=== PATIENT | male | born 1985 | race American Indian/Alaskan Native ===

== ENCOUNTER 2019-12-01 17:23 | Inpatient (IN) | payer OTHER, SELFPAY ==
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
[2019-12-01 19:40] LABS: Basophils % (Auto) 0.3 % (0.0-1.8); Hematocrit 46.3 % (35.5-45.6); Hemoglobin 15.3 gm/dl (11.8-15.2); Lymphocytes # (Auto) 1.4 K/mm3 (1.2-5.4); Lymphocytes % (Auto) 9.8 % (13.4-35.0); Mean Corpuscular HGB Conc 33 % (32-34); Mean Corpuscular Volume 81 fl (84-94); Monocytes # (Auto) 1.8 K/mm3 (0.0-0.8); Platelet Count 278 K/mm3 (140-440); Red Cell Distribution Width 13.9 % (13.2-15.2)
--- NOTE | 2019-12-01 19:55 | Cat Scan Report ---
CT head/brain wo con INDICATION / CLINICAL INFORMATION: 34 years Male; altered mental status. TECHNIQUE: Routine CT head without contrast. All CT scans at this location are performed using CT dos e reduction for ALARA by means of automated exposure control. COMPARISON: None. FINDINGS: BRAIN / INTRACRANIAL CONTENTS: The brain appears to demonstrate appropriate attenuation. The ventricu lar system is within normal limits in size and configuration. There is no CT evidence of acute intrac ranial hemorrhage or significant mass effect. ORBITS: No significant abnormality of visualized orbits. SINUSES / MASTOIDS: There is minimal mucosal thickening along the posterior left ethmoid air cells. CRANIOCERVICAL JUNCTION: No significant abnormality. ADDITIONAL FINDINGS: None. IMPRESSION: 1. There is no CT evidence of acute intracranial process. Signer Name: Frank Lucio MD Signed: 12/01/2019 7:51 PM Workstation Name: [id number]
[2019-12-01 20:00] LABS: INR 1.09 (0.87-1.13); Partial Thromboplastin Time 26.3 Sec. (24.2-36.6)
[2019-12-01 20:06] LABS: Alanine Aminotransferase 35 units/L (7-56); Albumin 4.2 g/dL (3.9-5); BUN/Creatinine Ratio 16; Blood Urea Nitrogen 13 mg/dL (9-20); Calcium 9.4 mg/dL (8.4-10.2); Hemolysis Index 0
--- NOTE | 2019-12-01 20:20 | XRay Report ---
XR chest 1V ap INDICATION / CLINICAL INFORMATION: AMS COMPARISON: None available. FINDINGS: SUPPORT DEVICES: None. HEART / MEDIASTINUM: No significant abnormality. LUNGS / PLEURA: Low lung lines with bronchovascular crowding. Lungs are clear. Costophrenic sulci ar e sharp. No pneumothorax. ADDITIONAL FINDINGS: No significant additional findings. IMPRESSION: 1. Pulmonary hypoinflation with no acute findings. Signer Name: Santo Hayes MD Signed: 12/01/2019 8:16 PM Workstation Name: [id number]
[2019-12-01 21:09] LABS: Amphetamine Screen,Urine PRESUMPTIVE NEGATIVE; Benzodiazepines Screen,Urine PRESUMPTIVE NEGATIVE; Cannabinoid Screen,Urine PRESUMPTIVE NEGATIVE; Cocaine Screen,Urine PRESUMPTIVE NEGATIVE; Methadone Screen,Urine PRESUMPTIVE NEGATIVE; Opiate Screen,Urine PRESUMPTIVE NEGATIVE
[2019-12-01 21:12] LABS: Bilirubin,Urine NEG (Negative); Blood,Urine NEG (Negative); Color,Urine Yellow (Yellow); Mucus,Urine FEW /HPF; Urobilinogen,Urine < 2.0 mg/dL (<2.0)
[2019-12-01] MEDS ORDERED: CEFEPIME/NS 2 GM/100 ML 2 GM/100 ML BAG IV ONE (21:38)
[2019-12-01] MEDS ORDERED: SODIUM CHLORIDE 0.9% 1000 ML 1,000 ML IV ONE (21:38)
[2019-12-01 21:45] LABS: ABG Base Excess 0.5 mmol/L (-2.0-3.0); ABG HCO3 24.6 mmol/L (20.0-26.0); ABG Methemoglobin 0.6 % (0.0-1.5); ABG Oxygen Saturation 98.7 % (95.0-99.0); ABG PCO2 38.3 mm Hg; ABG PH 7.426 pH Units (7.350-7.450); ABG PO2 139.1 mm Hg (80.0-90.0)
[2019-12-01] MEDS ORDERED: LORazepam 2 MG/ML VIAL IV ONE (21:59)
[2019-12-02] MEDS ORDERED: ACETAMINOPHEN 325 MG TAB PO PRN (00:34)
[2019-12-02] MEDS ORDERED: MAGNESIUM HYDROXIDE (MOM) ORAL LIQD UDC PO PRN (00:34)
[2019-12-02] MEDS ORDERED: ONDANSETRON 4 MG/2 ML INJ IV PRN (00:34)
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
[2019-12-02] MEDS: SODIUM CHLORIDE 0.9% 1000 ML 1,000 ML IV SCH (04:25)
[2019-12-02] MEDS: CEFEPIME/NS 2 GM/100 ML 2 GM/100 ML BAG IV SCH ×3 (05:22→22:35)
[2019-12-02] MEDS ORDERED: dexAMETHasone 4 MG/ML VIAL IV SCH (10:00)
--- NOTE | 2019-12-02 11:56 | Consultation ---
History of Present Illness - Reason for Consult Consult date: 12/02/19 - History of Present Illness 34 yo M no PMHx brought to the hospital due to altered mental status. He was recently diagnosed with COVID at [facility] on 11/26/19 and was given symptomatic treatment before being discharged. CT at the time showed bilateral GGO of the lungs. He re-presented to [facility] the day prior to admission with anxiety, and was discharged.. He was then with his family and became confused with hallucinations. He was found to be tachycardic on presentation to the hospital and his altered mental status improved while in the ER. Afebrile since admission. Currently on cefepime. White count is elevated at 13.7. Blood cultures are pending. Imaging personally reviewed: CXR: decreased volumes, no obvious pneumonia. Review of Systems: Bold if positive, otherwise negative General: fevers, chills, rigors HEENT: visual disturbance, diplopia, eye pain Respiratory: cough, sputum, hemoptysis, shortness of breath Cardiovascular: chest pain, syncope Gastrointestinal: nausea, vomiting, diarrhea, abdominal pain Genitourinary: dysuria, hematuria, flank pain Musculoskeletal: neck pain, back pain, joint pain, edema Neurologic: headaches, seizures Hematologic: easy bruising or bleeding Endocrine: night sweats, acute weight loss Skin: rash, jaundice, redness Psychiatric: suicidal, homicidal ideation Past History Past Medical History: No medical history Past Surgical History: No surgical history Social history: no significant social history Family history: no significant family history Medications and Allergies Allergies Allergy/AdvReac Type Severity Reaction Status Date / Time lead Allergy Unknown Verified 12/01/19 20:42 Home Medications Medication Instructions Recorded Confirmed Last Taken Type No Known Home Medications [No 12/02/19 12/02/19 Unknown History Reported Home Medications] Active Meds: Active Medications Acetaminophen (Tylenol) 650 mg PO Q4H PRN PRN Reason: Pain MILD(1-3)/Fever >100.5/MILLER Dexamethasone (Decadron) 6 mg IV Q24HR NEHA Last Admin: 12/02/19 09:35 Dose: 6 mg Documented by: Enoxaparin Sodium (Enoxaparin) 40 mg SUB-Q QDAY@2200 NEHA Sodium Chloride (Nacl 0.9% 1000 Ml) 1,000 mls @ 75 mls/hr IV DIRECT NEHA Last Admin: 12/02/19 04:25 Dose: 75 mls/hr Documented by: Cefepime HCl (Cefepime/Ns 2 Gm/100 Ml) 2 gm in 100 mls @ 200 mls/hr IV Q8HR [facility]; Protocol Last Admin: 12/02/19 05:22 Dose: 200 mls/hr Documented by: Magnesium Hydroxide (Milk Of Magnesia) 30 ml PO Q4H PRN PRN Reason: Constipation Ondansetron HCl (Zofran) 4 mg IV Q8H PRN PRN Reason: Nausea And Vomiting Sodium Chloride (Sodium Chloride Flush Syringe 10 Ml) 10 ml IV BID [facility] Last Admin: 12/02/19 09:36 Dose: 10 ml Documented by: Sodium Chloride (Sodium Chloride Flush Syringe 10 Ml) 10 ml IV PRN PRN PRN Reason: LINE FLUSH Physical Examination - Physical Exam Narrative exam: Physical Exam: Constitutional: Alert, cooperative. No acute distress Head, Ears, Nose: Normocephalic, atraumatic. External ears, nose normal Eyes: Conjunctivae/corneas clear. No icterus. No ptosis. Neck: Supple, no meningeal signs Oral: dentition fair, no thrush Cardiovascular: S1, S2 normal. Respiratory: Good air entry, clear to auscultation bilaterally GI: Soft, non-tender; bowel sounds normal. No peritoneal signs. Musculoskeletal: No pedal edema, no cyanosis. Skin: No rash or abscess Hem/Lymphatic: No palpable cervical or supraclavicular nodes. No lymphangitis Psych: Mood ok. Affect normal Neurological: Awake, alert, oriented. No gross abnormality - Constitutional Vitals: Vital Signs Temp Pulse Resp BP Pulse Ox 97.5 F L 104 H 18 137/87 98 12/02/19 05:00 12/02/19 05:00 12/02/19 05:00 12/02/19 05:00 12/02/19 05:00 Temperature -Last 24 Hours Temperature 97.5 F Temperature 97.6 F Temperature 98.9 F Temperature 98.7 F Results - Labs CBC & Chem 7: 12/01/19 19:20 12/01/19 19:20 Labs: Abnormal lab results 12/01/19 12/01/19 12/01/19 Range/Units 19:20 19:20 21:25 WBC 13.7 H (4.5-11.0) K/mm3 RBC 5.70 H (3.65-5.03) M/mm3 Hgb 15.3 H (11.8-15.2) gm/dl Hct 46.3 H (35.5-45.6) % MCV 81 L (84-94) fl MCH 27 L (28-32) pg Lymph % (Auto) 9.8 L (13.4-35.0) % [place] % (Auto) 13.0 H (0.0-7.3) % [place] # 1.8 H (0.0-0.8) K/mm3 Seg Neutrophils % 76.9 H (40.0-70.0) % Seg Neutrophils # 10.6 H (1.8-7.7) K/mm3 ABG pO2 139.1 H (80.0-90.0) mm Hg Sodium 132 L (137-145) mmol/L Chloride 92.4 L (98-107) mmol/L Glucose 103 H (75-100) mg/dL Total Protein 8.5 H (6.3-8.2) g/dL Assessment and Plan Cultures: Blood culture pending A/P: 34 yo M no PMHx admitted with COVID-19 and altered mental status. #COVID-19: recommend starting Remdesivir, even in the absence of hypoxia given he is having hallucinations. #Altered mental status: had been on steroids previously for the COVID, however he had self-stopped the medication as he felt it was making him anxious. Could be contributing to his AMS, however could also be a direct viral effect. Would need LP to determine which. If his symptoms resolve in short order can avoid LP Recs: -Started Remdesivir, D1 of 5. Monitor renal and liver function while receiving. If patient mental status improves prior to completion of all 5 days, no need to keep him here prior to the completion of the 5th day. -Continue empiric cefepime for now. -I strongly doubt a bacterial meningitis, as such an LP would not drive therapeutics, as such would hold off unless AMS does not resolve -Ordered procalcitonin for AM labs. Thank you for the consult, we will continue to follow. Keith Hinton MD [facility] ([facility]) M: [phone] O: [phone] F: [phone]
--- NOTE | 2019-12-02 16:45 | Progress Note ---
Assessment and Plan Assessment and plan: --Altered mental status/acute metabolic encephalopathy current Visit: Yes Status: Acute Plan to address problem: Possibly secondary to the underlying COVID infection. Supportive care, director food safety ID recommended lumbar puncture if no improvement Rule out underlying psych disorder, psych consult Drug screen is negative --Acute psychosis/hallucinations: Current Visit: Yes Status: Acute Plan to address problem: Patient is psychotic intermittent hallucinations supportive care, psych evaluation Haldol as needed, director food safety --Recent positive COVID-19; Current Visit: Yes Status: Acute Plan to address problem: isolation precautions, PPE protocols Dexamethasone,Remdecivir / Empiric cefepime, ID following -- Leukocytosis Current Visit: Yes Status: Acute Plan to address problem: Secondary to underlying disease process, steroid use On empiric cefepime, follow cultures -- DVT prophylaxis Current Visit: Yes Status: Acute Plan to address problem: SC Lovenox --Full code status Current Visit: Yes Status: Acute Closely monitor the patient and adjust management as needed Plan of care reviewed with the patient's nurse I also called patient's mother Ms. Lepe and sister Ms. Kidd[[phone]] I discussed in detail patient's condition, test reports, treatment plan ID recommendations, answered all their questions Disposition; follow ID, psych recommendations, follow clinically Discharge planning stable History Interval history: I have seen and examined the patient at the bedside Patient's chart and medications reviewed Patient was admitted with AMS and hallucinations Recently diagnosed positive COVID 19 Patient is calm but confused Vital signs reviewed Hospitalist Physical - Constitutional Vitals: Temp Pulse Resp BP Pulse Ox 98.0 F 104 H 20 157/95 98 12/02/19 13:19 12/02/19 05:00 12/02/19 13:19 12/02/19 13:19 12/02/19 05:00 General appearance: Present: no acute distress, well-nourished, other (Confused) - EENT Eyes: Present: PERRL, EOM intact - Neck Neck: Present: supple, normal ROM - Respiratory Respiratory effort: normal Respiratory: bilateral: diminished, negative: rales, rhonchi, wheezing - Cardiovascular Rhythm: regular Heart Sounds: Present: S1 & S2 (Tachycardia) - Extremities Extremities: no ischemia, No edema - Abdominal General gastrointestinal: soft, non-tender, non-distended, normal bowel sounds - Integumentary Integumentary: Present: clear, warm - Psychiatric Psychiatric: agitated, other (Confused, hallucinating) - Neurologic Neurologic: moves all extremities Results - Labs CBC & Chem 7: 12/01/19 19:20 12/01/19 19:20 Labs: Laboratory Last Values WBC 13.7 K/mm3 (4.5-11.0) H 12/01/19 19:20 RBC 5.70 M/mm3 (3.65-5.03) H 12/01/19 19:20 Hgb 15.3 gm/dl (11.8-15.2) H 12/01/19 19:20 Hct 46.3 % (35.5-45.6) H 12/01/19 19:20 MCV 81 fl (84-94) L 12/01/19 19:20 MCH 27 pg (28-32) L 12/01/19 19:20 MCHC 33 % (32-34) 12/01/19 19:20 RDW 13.9 % (13.2-15.2) 12/01/19 19:20 Plt Count 278 K/mm3 (140-440) 12/01/19 19:20 Lymph % (Auto) 9.8 % (13.4-35.0) L 12/01/19 19:20 Graham % (Auto) 13.0 % (0.0-7.3) H 12/01/19 19:20 Eos % (Auto) 0.0 % (0.0-4.3) 12/01/19 19:20 Baso % (Auto) 0.3 % (0.0-1.8) 12/01/19 19:20 Lymph # 1.4 K/mm3 (1.2-5.4) 12/01/19 19:20 Graham # 1.8 K/mm3 (0.0-0.8) H 12/01/19 19:20 Eos # 0.0 K/mm3 (0.0-0.4) 12/01/19 19:20 Baso # 0.0 K/mm3 (0.0-0.1) 12/01/19 19:20 Seg Neutrophils % 76.9 % (40.0-70.0) H 12/01/19 19:20 Seg Neutrophils # 10.6 K/mm3 (1.8-7.7) H 12/01/19 19:20 PT 14.2 Sec. (12.2-14.9) 12/01/19 19:20 INR 1.09 (0.87-1.13) 12/01/19 19:20 APTT 26.3 Sec. (24.2-36.6) 12/01/19 19:20 ABG pH 7.426 pH Units (7.350-7.450) 12/01/19 21:25 ABG pCO2 38.3 mm Hg 12/01/19 21:25 ABG pO2 139.1 mm Hg (80.0-90.0) H 12/01/19 21: ABG HCO3 24.6 mmol/L (20.0-26.0) 12/01/19 21:25 ABG O2 Saturation 98.7 % (95.0-99.0) 12/01/19 21: ABG O2 Content 20.9 (0.0-44) 12/01/19 21:25 ABG Base Excess 0.5 mmol/L (-2.0-3.0) 12/01/19 21:25 ABG Hemoglobin 15.2 gm/dl (14.0-18.0) 12/01/19 21:25 ABG Carboxyhemoglobin 1.2 % (0.0-5.0) 12/01/19 21:25 ABG Methemoglobin 0.6 % (0.0-1.5) 12/01/19 21: Oxyhemoglobin 96.9 % (95.0-99.0) 12/01/19 21:25 FiO2 21 % 12/01/19 21:25 Sodium 132 mmol/L (137-145) L 12/01/19 19:20 Potassium 3.9 mmol/L (3.6-5.0) 12/01/19 19:20 Chloride 92.4 mmol/L (98-107) L 12/01/19 19:20 Carbon Dioxide 23 mmol/L (22-30) 12/01/19 19:20 Anion Gap 21 mmol/L 12/01/19 19:20 BUN 13 mg/dL (9-20) 12/01/19 19:20 Creatinine 0.8 mg/dL (0.8-1.3) 12/01/19 19:20 Estimated GFR > 60 ml/min 12/01/19 19:20 BUN/Creatinine Ratio 16 % 12/01/19 19:20 Glucose 103 mg/dL (75-100) H 12/01/19 19:20 Lactic Acid 1.00 mmol/L (0.7-2.0) 12/01/19 19:20 Calcium 9.4 mg/dL (8.4-10.2) 12/01/19 19:20 Total Bilirubin 0.60 mg/dL (0.1-1.2) 12/01/19 19:20 AST 22 units/L (5-40) 12/01/19 19:20 ALT 35 units/L (7-56) 12/01/19 19:20 Alkaline Phosphatase 72 units/L (35-129) 12/01/19 19:20 Ammonia 35.0 umol/L (25-60) 12/01/19 19:20 Total Protein 8.5 g/dL (6.3-8.2) H 12/01/19 19:20 Albumin 4.2 g/dL (3.9-5) 12/01/19 19:20 Albumin/Globulin Ratio 1.0 % 12/01/19 19:20 Urine Color Yellow (Yellow) 12/01/19 Unknown Urine Turbidity Clear (Clear) 12/01/19 Unknown Urine pH 6.0 (5.0-7.0) 12/01/19 Unknown Ur Specific Pony 1.019 (1.003-1.030) 12/01/19 Unknown Urine Protein 30 mg/dl mg/dL (Negative) 12/01/19 Unknown Urine Glucose (UA) Neg mg/dL (Negative) 12/01/19 Unknown Urine Ketones 80 mg/dL (Negative) 12/01/19 Unknown Urine Blood Neg (Negative) 12/01/19 Unknown Urine Nitrite Neg (Negative) 12/01/19 Unknown Urine Bilirubin Neg (Negative) 12/01/19 Unknown Urine Urobilinogen < 2.0 mg/dL (<2.0) 12/01/19 Unknown Ur Leukocyte Esterase Neg (Negative) 12/01/19 Unknown Urine WBC (Auto) 1.0 /HPF (0.0-6.0) 12/01/19 Unknown Urine RBC (Auto) 3.0 /HPF (0.0-6.0) 12/01/19 Unknown U Epithel Cells (Auto) < 1.0 /HPF (0-13.0) 12/01/19 Unknown Urine Mucus Few /HPF 12/01/19 Unknown Urine Opiates Screen Presumptive negative 12/01/19 Unknown Urine Methadone Screen Presumptive negative 12/01/19 Unknown Ur Barbiturates Screen Presumptive negative 12/01/19 Unknown Ur Phencyclidine Scrn Presumptive negative 12/01/19 Unknown Ur Amphetamines Screen Presumptive negative 12/01/19 Unknown U Benzodiazepines Scrn Presumptive negative 12/01/19 Unknown Urine Cocaine Screen Presumptive negative 12/01/19 Unknown U Marijuana (THC) Screen Presumptive negative 12/01/19 Unknown Drugs of Abuse Note Disclamer 12/01/19 Unknown Plasma/Serum Alcohol < 0.01 % (0-0.07) 12/01/19 19:20 Microbiology: Microbiology 12/01/19 19:29 Peripheral/Venous Blood Culture - Preliminary Culture in Progress 12/01/19 19:20 Peripheral/Venous Blood Culture - Preliminary Culture in Progress Rodriguez/IV: Voiding Method Urinal IV Catheter Type [Right INT / Saline Lock Forearm] Active Medications - Current Medications Current Medications: Generic Name Dose Route Start Last Admin Trade Name Freq PRN Reason Stop Dose Admin Acetaminophen 650 mg 12/02/19 00:34 Tylenol PO Q4H PRN Pain MILD(1-3)/Fever >100.5/MILLER Dexamethasone 6 mg 12/02/19 10:00 12/02/19 09:35 Decadron IV 6 mg Q24HR NEHA Administration Enoxaparin Sodium 40 mg 12/02/19 22:00 Enoxaparin SUB-Q QDAY@2200 NEHA Sodium Chloride 1,000 mls @ 75 mls/hr 12/02/19 00:45 12/02/19 04:25 Nacl 0.9% 1000 Ml IV 75 mls/hr DIRECT NEHA Administration Cefepime HCl 2 gm in 100 mls @ 200 mls/hr 12/02/19 06:00 12/02/19 14:27 Cefepime/Ns 2 Gm/100 Ml IV 200 mls/hr Q8HR NEHA Administration Protocol Magnesium Hydroxide 30 ml 12/02/19 00:34 Milk Of Magnesia PO Q4H PRN Constipation Ondansetron HCl 4 mg 12/02/19 00:34 Zofran IV Q8H PRN Nausea And Vomiting Sodium Chloride 10 ml 12/02/19 10:00 12/02/19 09:36 Sodium Chloride Flush Syringe 10 Ml IV 10 ml BID NEHA Administration Sodium Chloride 10 ml 12/02/19 00:34 Sodium Chloride Flush Syringe 10 Ml IV PRN PRN LINE FLUSH
[2019-12-02] MEDS: HALOPERIDOL LACTATE 5 MG/1 ML INJ IM PRN (19:24)
[2019-12-02] MEDS: ENOXAPARIN 40 MG/0.4 ML INJ SUB-Q SCH (22:36)
[2019-12-03] MEDS: HALOPERIDOL LACTATE 5 MG/1 ML INJ IM PRN (01:37)
[2019-12-03] MEDS: CEFEPIME/NS 2 GM/100 ML 2 GM/100 ML BAG IV SCH ×2 (06:22→14:00)
[2019-12-03 07:30] LABS: Basophils # (Auto) 0.1 K/mm3 (0.0-0.1); Basophils % (Auto) 0.5 % (0.0-1.8); Eosinophils # (Auto) 0.1 K/mm3 (0.0-0.4); Eosinophils % (Auto) 0.5 % (0.0-4.3); Hematocrit 42.8 % (35.5-45.6); Hemoglobin 14.2 gm/dl (11.8-15.2); Lymphocytes # (Auto) 2.5 K/mm3 (1.2-5.4); Lymphocytes % (Auto) 19.1 % (13.4-35.0); Mean Corpuscular HGB Conc 33 % (32-34); Mean Corpuscular Volume 81 fl (84-94); Monocytes # (Auto) 1.6 K/mm3 (0.0-0.8); Monocytes % (Auto) 12.3 % (0.0-7.3); Platelet Count 359 K/mm3 (140-440); Red Blood Count 5.27 M/mm3 (3.65-5.03); Red Cell Distribution Width 13.6 % (13.2-15.2)
[2019-12-03 07:52] LABS: INR 1.04 (0.87-1.13)
[2019-12-03 07:55] LABS: Alanine Aminotransferase 28 units/L (7-56); Albumin 3.8 g/dL (3.9-5); BUN/Creatinine Ratio 11; Blood Urea Nitrogen 9 mg/dL (9-20); Calcium 9.6 mg/dL (8.4-10.2); Hemolysis Index 1
[2019-12-03 08:06] LABS: Bilirubin,Direct < 0.2 mg/dL (0-0.2)
[2019-12-03] MEDS ORDERED: dexAMETHasone 4 MG/ML VIAL PO SCH (08:42)
[2019-12-03] MEDS: DEXAMETHASONE 4 MG TAB PO SCH (09:22)
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
[2019-12-03 11:43] LABS: C-Reactive Protein 1.6 mg/dL (0.00-1.30)
[2019-12-03] MEDS ORDERED: REMDESIVIR 100 MG VIAL IV ONE (12:00)
[2019-12-03] MEDS ORDERED: REMDESIVIR 200 MG in SODIUM CHLORIDE 0.9% 250ML 250 ML IV ONE (12:00)
[2019-12-03] MEDS: SODIUM CHLORIDE 0.9% 50 ML IVPB IV SCH (12:15)
[2019-12-03] MEDS: SODIUM CHLORIDE 0.9% 1000 ML 1,000 ML IV SCH ×2 (12:51→22:24)
--- NOTE | 2019-12-03 15:55 | Progress Note ---
Assessment and Plan - Patient Problems (1) COVID-19 Current Visit: Yes Status: Acute Plan to address problem: - Patient reportedly was COVID-19 positive on 11/25 he was given albuterol inhaler, prednisone and Toradol treatment - 12/01 COVID PCR positive - Infectious disease consulted - Droplet/airborne precautions - 12/01 dexamethasone IV was changed to PO (12/01-12/11) - Intiated on redisivir (12/02-12/06) - Supplemental oxygenation as needed - OOB TID and PRN - Prone to sleep as needed - Pulmonary hygiene - Continue IV cefepime - Trend d-dimer, ferratin, CRP, LDH, glucose (2) Acute psychosis Current Visit: Yes Status: Acute Plan to address problem: - Presented with AMS - 12/01 aggressive toward staff, treated with antipsychotics - 12/02 MH consult, does not recommend inpt psych at this time - Sitter at bedside - Supportive care - Deescalation techniques - (3) Metabolic encephalopathy Current Visit: Yes Status: Acute Plan to address problem: -Possibly secondary to COVID-19 pneumonia - Presented with with altered mental status and hallucination Sitter at bedside for safety - Reorientation and redirection as needed - 11/30 AB.4/30 10/29 38/24.6 on FiO2 21% (4) Leukocytosis Current Visit: Yes Status: Acute Plan to address problem: - WBC 13.7 at admit - May be elevated in light of COVID-19 pneumonia and steroid use -Trend CBC (5) DVT prophylaxis Current Visit: Yes Status: Acute Plan to address problem: -SCDs to bilateral lower extremities while in bed -Patient is ambulatory -Lovenox subcu History Interval history: Patient is a 34-year-old -[place] male with no significant medical history was brought into the emergency room on 11/30 for changes in mental status. Patient was diagnosed with COVID-19 at [facility] on November 26, 2019. He was given albuterol inhaler, prednisone and Toradol for his treatment. According to patient's sister, patient was said to his sister that he is at home doing homework with the kids and that he was shot in the chest. However patient sister denies any kids in the room or that he was shot when he started acting confused and stating that he has been shot in the chest and also states that there were no kids in the room. Upon arrival in the emergency room patient was said to be tachycardic and acting confused. He became more alert and oriented during the course of his stay in his emergency room. Work-up in the emergency room reveals leukocytosis, chest x-ray is within normal limits. However records reviewed on patient's visit to [facility] on [facility] according to the ER physician showed bilateral opacities on the CT angiogram. Patient has been placed on isolation for COVID-19 and started on empiric antibiotics. Infectious disease has been consulted. This morning mental health consult was obtained. On exam he is napping in bed however aw akens to verbal and physical stimuli. Patient has a sitter at bedside. Patient is alert and oriented to self, location, and current events. 12/02: Mental health consult does not recommend acute inpatient hospitalization at this time and has signed off, patient initiated on Remdisivir 12/01: Patient was aggressive overnight to the nursing staff and was given antipsychotic medication, initiated on steroids Hospitalist Physical - Constitutional Vitals: Temp Pulse Resp BP Pulse Ox 98.0 F 93 H 18 164/97 90 12/03/19 11:19 12/03/19 11:19 12/03/19 11:19 12/03/19 11:19 12/03/19 11:19 General appearance: Present: no acute distress, well-nourished - EENT Eyes: Present: PERRL, EOM intact ENT: hearing intact, clear oral mucosa - Neck Neck: Present: supple, normal ROM - Respiratory Respiratory effort: normal Respiratory: bilateral: CTA - Cardiovascular Rhythm: regular Heart Sounds: Present: S1 & S2. Absent: systolic murmur, diastolic murmur - Extremities Extremities: no ischemia, pulses intact, pulses symmetrical, No edema, normal temperature, normal color, Full ROM Peripheral Pulses: within normal limits - Abdominal General gastrointestinal: soft, non-tender, non-distended, normal bowel sounds - Integumentary Integumentary: Present: clear, warm, dry - Psychiatric Psychiatric: appropriate mood/affect, cooperative - Neurologic Neurologic: CNII-XII intact, no focal deficits, moves all extremities, gait normal - Allied Health Allied health notes reviewed: nursing, social work Results - Labs CBC & Chem 7: 12/03/19 06:28 09/04/20 10:40 Labs: Laboratory Last Values WBC 13.0 K/mm3 (4.5-11.0) H 12/03/19 06:28 RBC 5.27 M/mm3 (3.65-5.03) H 12/03/19 06:28 Hgb 14.2 gm/dl (11.8-15.2) 12/03/19 06:28 Hct 42.8 % (35.5-45.6) 12/03/19 06: MCV 81 fl (84-94) L 12/03/19 06: MCH 27 pg (28-32) L 12/03/19 06: MCHC 33 % (32-34) 12/03/19 06: RDW 13.6 % (13.2-15.2) 12/03/19 06: Plt Count 359 K/mm3 (140-440) 12/03/19 06:28 Lymph % (Auto) 19.1 % (13.4-35.0) 12/03/19 06: [place] % (Auto) 12.3 % (0.0-7.3) H 12/03/19 06: Eos % (Auto) 0.5 % (0.0-4.3) 12/03/19 06: Baso % (Auto) 0.5 % (0.0-1.8) 12/03/19 06: Lymph # 2.5 K/mm3 (1.2-5.4) 12/03/19 06: [place] # 1.6 K/mm3 (0.0-0.8) H 12/03/19 06: Eos # 0.1 K/mm3 (0.0-0.4) 12/03/19 06:28 Baso # 0.1 K/mm3 (0.0-0.1) 12/03/19 06: Seg Neutrophils % 67.6 % (40.0-70.0) 12/03/19 06: Seg Neutrophils # 8.8 K/mm3 (1.8-7.7) H 12/03/19 06:28 PT 13.8 Sec. (12.2-14.9) 12/03/19 06: INR 1.04 (0.87-1.13) 12/03/19 06:28 APTT 26.3 Sec. (24.2-36.6) 12/01/19 19:20 D-Dimer 156.88 ng/mlDDU (0-234) 12/03/19 10:40 ABG pH 7.426 pH Units (7.350-7.450) 12/01/19 21:25 ABG pCO2 38.3 mm Hg 12/01/19 21:25 ABG pO2 139.1 mm Hg (80.0-90.0) H 12/01/19 21:25 ABG HCO3 24.6 mmol/L (20.0-26.0) 12/01/19 21:25 ABG O2 Saturation 98.7 % (95.0-99.0) 12/01/19 21: ABG O2 Content 20.9 (0.0-44) 12/01/19 21: ABG Base Excess 0.5 mmol/L (-2.0-3.0) 12/01/19 21:25 ABG Hemoglobin 15.2 gm/dl (14.0-18.0) 12/01/19 21:25 ABG Carboxyhemoglobin 1.2 % (0.0-5.0) 12/01/19 21:25 ABG Methemoglobin 0.6 % (0.0-1.5) 12/01/19 21: Oxyhemoglobin 96.9 % (95.0-99.0) 12/01/19 21:25 FiO2 21 % 12/01/19 21:25 Sodium 138 mmol/L (137-145) 12/03/19 06:28 Potassium 4.0 mmol/L (3.6-5.0) 12/03/19 06:28 Chloride 99.8 mmol/L (98-107) 12/03/19 06:28 Carbon Dioxide 25 mmol/L (22-30) 12/03/19 06:28 Anion Gap 17 mmol/L 12/03/19 06:28 BUN 9 mg/dL (9-20) 12/03/19 06:28 Creatinine 0.8 mg/dL (0.8-1.3) 12/03/19 06:28 Estimated GFR > 60 ml/min 12/03/19 06:28 BUN/Creatinine Ratio 11 % 12/03/19 06:28 Glucose 104 mg/dL (75-100) H 12/03/19 10:40 Lactic Acid 1.00 mmol/L (0.7-2.0) 12/01/19 19:20 Calcium 9.6 mg/dL (8.4-10.2) 12/03/19 06:28 Phosphorus 3.10 mg/dL (2.5-4.5) 12/03/19 06:28 Magnesium 2.30 mg/dL (1.7-2.3) 12/03/19 06:28 Ferritin 390.9 ng/mL (30.0-300.0) H 12/03/19 10:40 Total Bilirubin 0.60 mg/dL (0.1-1.2) 12/03/19 06:28 Direct Bilirubin < 0.2 mg/dL (0-0.2) 12/03/19 06:28 Indirect Bilirubin 0.4 mg/dL 12/03/19 06:28 AST 13 units/L (5-40) 12/03/19 06:28 ALT 28 units/L (7-56) 12/03/19 06:28 Alkaline Phosphatase 59 units/L (35-129) 12/03/19 06:28 Ammonia 36.0 umol/L (25-60) 12/03/19 06:28 Lactate Dehydrogenase 164 units/L (91-180) 12/03/19 10:40 C-Reactive Protein 1.60 mg/dL (0.00-1.30) H 12/03/19 10:40 Total Protein 7.3 g/dL (6.3-8.2) 12/03/19 06:28 Albumin 3.8 g/dL (3.9-5) L 12/03/19 06:28 Albumin/Globulin Ratio 1.1 % 12/03/19 06:28 Procalcitonin 0.05 ng/mL (<0.15) 12/03/19 06:28 Urine Color Yellow (Yellow) 12/01/19 Unknown Urine Turbidity Clear (Clear) 12/01/19 Unknown Urine pH 6.0 (5.0-7.0) 12/01/19 Unknown Ur Specific [place] 1.019 (1.003-1.030) 12/01/19 Unknown Urine Protein 30 mg/dl mg/dL (Negative) 12/01/19 Unknown Urine Glucose (UA) Neg mg/dL (Negative) 12/01/19 Unknown Urine Ketones 80 mg/dL (Negative) 12/01/19 Unknown Urine Blood Neg (Negative) 12/01/19 Unknown Urine Nitrite Neg (Negative) 12/01/19 Unknown Urine Bilirubin Neg (Negative) 12/01/19 Unknown Urine Urobilinogen < 2.0 mg/dL (<2.0) 12/01/19 Unknown Ur Leukocyte Esterase Neg (Negative) 12/01/19 Unknown Urine WBC (Auto) 1.0 /HPF (0.0-6.0) 12/01/19 Unknown Urine RBC (Auto) 3.0 /HPF (0.0-6.0) 12/01/19 Unknown U Epithel Cells (Auto) < 1.0 /HPF (0-13.0) 12/01/19 Unknown Urine Mucus Few /HPF 12/01/19 Unknown Urine Opiates Screen Presumptive negative 12/01/19 Unknown Urine Methadone Screen Presumptive negative 12/01/19 Unknown Ur Barbiturates Screen Presumptive negative 12/01/19 Unknown Ur Phencyclidine Scrn Presumptive negative 12/01/19 Unknown Ur Amphetamines Screen Presumptive negative 12/01/19 Unknown U Benzodiazepines Scrn Presumptive negative 12/01/19 Unknown Urine Cocaine Screen Presumptive negative 12/01/19 Unknown U Marijuana (THC) Screen Presumptive negative 12/01/19 Unknown Drugs of Abuse Note Disclamer 12/01/19 Unknown Plasma/Serum Alcohol < 0.01 % (0-0.07) 12/01/19 19:20 Coronavirus (PCR) Positive (Negative) A 12/02/19 Unknown Microbiology: Microbiology 12/01/19 19:29 Peripheral/Venous Blood Culture - Preliminary NO GROWTH AFTER 24 HOURS 12/01/19 19:20 Peripheral/Venous Blood Culture - Preliminary NO GROWTH AFTER 24 HOURS Rodriguez/IV: Voiding Method Toilet IV Catheter Type [Left Forearm Peripheral IV ] IV Catheter Type [Right INT / Saline Lock Forearm] Active Medications - Current Medications Current Medications: Generic Name Dose Route Start Last Admin Trade Name Freq PRN Reason Stop Dose Admin Acetaminophen 650 mg 12/02/19 00:34 Tylenol PO Q4H PRN Pain MILD(1-3)/Fever >100.5/MILLER Dexamethasone 6 mg 12/03/19 10:00 12/03/19 09:22 Decadron PO 12/11/19 10:01 6 mg DAILY NEHA Administration Enoxaparin Sodium 40 mg 12/02/19 22:00 12/02/19 22:36 Enoxaparin SUB-Q 40 mg QDAY@2200 NEHA Administration Haloperidol Lactate 2 mg 12/02/19 17:05 12/03/19 01:37 Haldol IM 2 mg Q6H PRN Administration Agitation Sodium Chloride 1,000 mls @ 75 mls/hr 12/02/19 00:45 12/03/19 12:51 Nacl 0.9% 1000 Ml IV 75 mls/hr DIRECT NEHA Administration Cefepime HCl 2 gm in 100 mls @ 200 mls/hr 12/02/19 06:00 12/03/19 06:22 Cefepime/Ns 2 Gm/100 Ml IV 200 mls/hr Q8HR NEHA Administration Protocol REMDESIVIR 100 mg/ Sodium 250 mls @ 500 mls/hr 12/04/19 21:00 Chloride IV 12/07/19 21:29 Q24HR@2100 [facility] Magnesium Hydroxide 30 ml 12/02/19 00:34 Milk Of Magnesia PO Q4H PRN Constipation Olanzapine 2.5 mg 12/03/19 22:00 Zyprexa PO 12/04/19 22:01 QHS NEHA Ondansetron HCl 4 mg 12/02/19 00:34 Zofran IV Q8H PRN Nausea And Vomiting Sodium Chloride 10 ml 12/02/19 10:00 12/03/19 12:15 Sodium Chloride Flush Syringe 10 Ml IV 10 ml BID NEHA Administration Sodium Chloride 10 ml 12/02/19 00:34 Sodium Chloride Flush Syringe 10 Ml IV PRN PRN LINE FLUSH Sodium Chloride 50 ml 12/03/19 12:00 12/03/19 12:15 Nacl 0.9% IV 12/07/19 21:01 50 ml Q24HR@2100 NEHA Administration
--- NOTE | 2019-12-03 16:48 | Progress Note ---
Assessment and Plan Cultures: Blood culture pending A/P: 34 yo M no PMHx admitted with COVID-19 and altered mental status. #COVID-19: recommend starting Remdesivir, even in the absence of hypoxia given he is having hallucinations. #Altered mental status: had been on steroids previously for the COVID, however he had self-stopped the medication as he felt it was making him anxious. Could be contributing to his AMS, however could also be a direct viral effect. Would need LP to determine which. If his symptoms resolve in short order can avoid LP Recs: -Remdesivir, D2 of 5. Monitor renal and liver function while receiving. If patient mental status improves prior to completion of all 5 days, no need to keep him here prior to the completion of the 5th day. -Normal procalcitonin, believe ultimately status likely adverse reaction to previous medications. As such would stop cefepime which can worsen encephalopathy. -I strongly doubt a bacterial meningitis, as such an LP would not drive therapeutics, as such would hold off unless AMS does not resolve Thank you for the consult, we will continue to follow. Keith Hinton MD [facility] ([facility]) M: [phone] O: [phone] F: [phone] Subjective Date of service: 12/03/19 Interval history: Afebrile, white count is elevated at 13. No acute change. Objective - Exam Narrative Exam: Physical Exam: Constitutional: Alert, cooperative. No acute distress Head, Ears, Nose: Normocephalic, atraumatic. External ears, nose normal Eyes: Conjunctivae/corneas clear. No icterus. No ptosis. Neck: Supple, no meningeal signs Oral: dentition fair, no thrush Cardiovascular: S1, S2 normal. Respiratory: Good air entry, clear to auscultation bilaterally GI: Soft, non-tender; bowel sounds normal. No peritoneal signs. Musculoskeletal: No pedal edema, no cyanosis. Skin: No rash or abscess Hem/Lymphatic: No palpable cervical or supraclavicular nodes. No lymphangitis Psych: Mood ok. Affect normal Neurological: Awake, alert, oriented. No gross abnormality - Constitutional Vitals: Vital Signs Temp Pulse Resp BP Pulse Ox 98.0 F 93 H 18 164/97 90 12/03/19 11:19 12/03/19 11:19 12/03/19 11:19 12/03/19 11:19 12/03/19 11:19 Temperature -Last 24 Hours Temperature 98.0 F Temperature 98.3 F Temperature 98.5 F - Labs CBC & Chem 7: 12/03/19 06:28 12/03/19 10:40 Labs: Abnormal lab results 12/02/19 12/03/19 12/03/19 Range/Units Unknown 06:28 06:28 WBC 13.0 H (4.5-11.0) K/mm3 RBC 5.27 H (3.65-5.03) M/mm3 MCV 81 L (84-94) fl MCH 27 L (28-32) pg [place] % (Auto) 12.3 H (0.0-7.3) % [place] # 1.6 H (0.0-0.8) K/mm3 Seg Neutrophils # 8.8 H (1.8-7.7) K/mm3 Glucose (75-100) mg/dL Ferritin (30.0-300.0) ng/mL C-Reactive Protein (0.00-1.30) mg/dL Albumin 3.8 L (3.9-5) g/dL Coronavirus (PCR) Positive A (Negative) 12/03/19 12/03/19 Range/Units 10:40 10:40 WBC (4.5-11.0) K/mm3 RBC (3.65-5.03) M/mm3 MCV (84-94) fl MCH (28-32) pg [place] % (Auto) (0.0-7.3) % [place] # (0.0-0.8) K/mm3 Seg Neutrophils # (1.8-7.7) K/mm3 Glucose 104 H (75-100) mg/dL Ferritin 390.9 H (30.0-300.0) ng/mL C-Reactive Protein 1.60 H (0.00-1.30) mg/dL Albumin (3.9-5) g/dL Coronavirus (PCR) (Negative)
[2019-12-03] MEDS: ENOXAPARIN 40 MG/0.4 ML INJ SUB-Q SCH (22:15)
[2019-12-04] MEDS: HALOPERIDOL LACTATE 5 MG/1 ML INJ IM PRN (00:28)
[2019-12-04 07:29] LABS: Hematocrit 41.7 % (35.5-45.6); Hemoglobin 13.8 gm/dl (11.8-15.2); Mean Corpuscular HGB Conc 33 % (32-34); Mean Corpuscular Volume 81 fl (84-94); Platelet Count 367 K/mm3 (140-440); Red Blood Count 5.18 M/mm3 (3.65-5.03); Red Cell Distribution Width 13.9 % (13.2-15.2)
--- NOTE | 2019-12-04 09:12 | Progress Note ---
Assessment and Plan Assessment and Plan - Patient Problems (1) Altered mental status-stable Current Visit: Yes Status: Acute Plan to address problem: Possibly 2/2 to the underlying pneumonia /COVID infection. We will continue to monitor mental status and 1:[address] of the head with no acute finding Patients medical record- reviewed on patient's visit to [facility] according to the ER physician showed bilateral opacities on the CT angiogram. (2) Acute psychosis-stable Current Visit: Yes Status: Acute Plan to address problem: 12/01 aggressive toward staff, treated with antipsychotics 12/02 MH consult, does not recommend inpt psych at this time Sitter at bedside Supportive care (2) COVID-19 virus infection Current Visit: Yes Status: Acute Plan to address problem: Continue isolation precautions and meanwhile will placed on IV steroid. infectious disease consult-f/u with recommendation (3) Leukocytosis tending down-11.1 today Current Visit: Yes Status: Acute Plan to address problem: Likely 2/2 to the underlying pneumonia/steroid use. Monitor CBC. (4) DVT prophylaxis Current Visit: Yes Status: Acute Plan to address problem: Patient placed on subcutaneous Lovenox (5) Full code status Current Visit: Yes Status: Acute Subjective Date of service: 12/04/19 Principal diagnosis: PNA, AMS Interval history: Patient seen at bed side in the room. Reviewed lab, mar, and v/s patient calm-no aggression noted. Patient has 1:1 observation Objective - Constitutional Vitals: Vital Signs - 12hr 12/03/19 12/03/19 12/04/19 21:38 22:00 04:13 Temperature 98.6 F 97.7 F Pulse Rate 105 H 93 H Respiratory 18 18 16 Rate Blood Pressure 149/93 164/108 O2 Sat by Pulse 96 100 Oximetry General appearance: Present: no acute distress, well-nourished - EENT Eyes: PERRL, EOM intact ENT: hearing intact, clear oral mucosa Ears: bilateral: normal - Neck Neck: supple, normal ROM - Respiratory Respiratory effort: normal Respiratory: bilateral: CTA - Breasts Breasts: normal - Cardiovascular Rhythm: regular Heart Sounds: Present: S1 & S2. Absent: gallop, rub Extremities: pulses intact, No edema, normal color, Full ROM - Gastrointestinal General gastrointestinal: Present: soft, non-tender, non-distended, normal bowel sounds - Genitourinary Male genitourinary: normal - Integumentary Integumentary: clear, warm, dry - Musculoskeletal Musculoskeletal: 1, strength equal bilaterally - Neurologic Neurologic: moves all extremities - Psychiatric Psychiatric: appropriate mood/affect, intact judgment & insight, memory intact, cooperative (No aggression noted today) - Labs CBC & Chem 7: 12/04/19 06:08 12/03/19 10:40 Labs: Abnormal lab results 12/02/19 12/03/19 12/03/19 Range/Units Unknown 10:40 10:40 WBC (4.5-11.0) K/mm3 RBC (3.65-5.03) M/mm3 MCV (84-94) fl MCH (28-32) pg Glucose 104 H (75-100) mg/dL Ferritin 390.9 H (30.0-300.0) ng/mL C-Reactive Protein 1.60 H (0.00-1.30) mg/dL Coronavirus (PCR) Positive A (Negative) 12/04/19 Range/Units 06:08 WBC 11.1 H (4.5-11.0) K/mm3 RBC 5.18 H (3.65-5.03) M/mm3 MCV 81 L (84-94) fl MCH 27 L (28-32) pg Glucose (75-100) mg/dL Ferritin (30.0-300.0) ng/mL C-Reactive Protein (0.00-1.30) mg/dL Coronavirus (PCR) (Negative)
[2019-12-04] MEDS ORDERED: hydrALAZINE 20 MG/1 ML INJ IV PRN (09:22)
[2019-12-04] MEDS: DEXAMETHASONE 4 MG TAB PO SCH (09:39)
[2019-12-04] MEDS: SODIUM CHLORIDE 0.9% 1000 ML 1,000 ML IV SCH (11:16)
[2019-12-04] MEDS: SODIUM CHLORIDE 0.9% 50 ML IVPB IV SCH (21:22)
[2019-12-04] MEDS: REMDESIVIR 100 MG in SODIUM CHLORIDE 0.9% 250ML 250 ML IV SCH (21:23)
[2019-12-04] MEDS: ENOXAPARIN 40 MG/0.4 ML INJ SUB-Q SCH (21:24)
[2019-12-05 08:43] LABS: C-Reactive Protein 0.3 mg/dL (0.00-1.30)
[2019-12-05] MEDS: DEXAMETHASONE 4 MG TAB PO SCH (09:43)
--- NOTE | 2019-12-05 10:53 | Progress Note ---
Assessment and Plan Assessment and Plan - Patient Problems (1) Altered mental status-resolved Current Visit: Yes Status: Acute Plan to address problem: Possibly 2/2 to the underlying pneumonia /COVID infection. 1:1 observation discontinued Psych team signed off-inpatient psych -not recommended CT of the head with no acute finding Patients medical record- reviewed on [facility] visit [facility] according to the ER physician showed bilateral opacities on the CT angiogram. (2) Acute psychosis-resolved Current Visit: Yes Status: Acute Plan to address problem: 12/01 aggressive toward staff, treated with antipsychotics 12/02 consult, does not recommend inpt psych at this time 12/05/19-patient alert and oriented-pt calm and very pleasant (2) COVID-19 virus infection Current Visit: Yes Status: Acute Plan to address problem: Continue isolation precautions Continue steroid and remdesivir therapy per ID Decadrone started 12/03 to 12/11/19 Remdesivir start date 12/04/19 to 12/06 infectious disease consult-f/u with recommendation (3) Leukocytosis tending down Current Visit: Yes Status: Acute Plan to address problem: Likely 2/2 to the underlying pneumonia/steroid use. Monitor CBC. (4) DVT prophylaxis Current Visit: Yes Status: Acute Plan to address problem: Patient placed on subcutaneous Lovenox (5) Full code status Current Visit: Yes Status: Acute Subjective Date of service: 12/05/19 Principal diagnosis: PNA, AMS Interval history: Patient seen at bed side in the room. Reviewed lab, mar, and v/s patient calm-no aggression noted. patient on room air and no sob Patient said he can't remember being aggressive He denies psych hx and he works as a auto fleet maintenance manager in [place] Objective - Constitutional Vitals: Vital Signs - 12hr 12/04/19 12/05/19 22:50 05:33 Temperature 98.3 F 97.8 F Pulse Rate 73 81 Respiratory 18 18 Rate Blood Pressure 146/95 135/88 O2 Sat by Pulse 99 99 Oximetry General appearance: Present: no acute distress, well-nourished - EENT Eyes: PERRL, EOM intact ENT: hearing intact, clear oral mucosa Ears: bilateral: normal - Neck Neck: supple, normal ROM - Respiratory Respiratory effort: normal Respiratory: bilateral: CTA - Breasts Breasts: normal - Cardiovascular Heart rate: 81 Rhythm: regular Heart Sounds: Present: S1 & S2. Absent: gallop, rub Extremities: pulses intact, No edema, normal color, Full ROM - Gastrointestinal General gastrointestinal: Present: soft, non-tender, non-distended, normal bowel sounds - Genitourinary Male genitourinary: normal - Integumentary Integumentary: clear, warm, dry - Musculoskeletal Musculoskeletal: 1, strength equal bilaterally - Neurologic Neurologic: moves all extremities - Psychiatric Psychiatric: memory intact, appropriate mood/affect, intact judgment & insight - Labs CBC & Chem 7: 12/04/19 06:08 12/05/19 07:37 Labs: Abnormal lab results 12/05/19 12/05/19 Range/Units 07:37 07:37 Glucose 74 L (75-100) mg/dL Ferritin 386.9 H (30.0-300.0) ng/mL
[2019-12-05] MEDS: SODIUM CHLORIDE 0.9% 1000 ML 1,000 ML IV SCH (14:21)
[2019-12-05] MEDS: amLODIPine 5 MG TAB PO SCH (16:26)
[2019-12-05] MEDS: ENOXAPARIN 40 MG/0.4 ML INJ SUB-Q SCH (21:57)
[2019-12-05] MEDS: REMDESIVIR 100 MG in SODIUM CHLORIDE 0.9% 250ML 250 ML IV SCH (21:58)
[2019-12-05] MEDS: SODIUM CHLORIDE 0.9% 50 ML IVPB IV SCH (21:58)
[2019-12-06] MEDS: SODIUM CHLORIDE 0.9% 1000 ML 1,000 ML IV SCH (03:15)
[2019-12-06] MEDS: DEXAMETHASONE 4 MG TAB PO SCH (12:21)
--- NOTE | 2019-12-06 12:39 | Discharge Summary ---
Providers - Providers Date of Admission: 12/01/19 23:45 Attending physician: MANAS HERNANDEZ 12/02/19 00:34 Consult to Physician [CONS] Routine Comment: Consulting Provider: GATO GONZALEZ Physician Instructions: Reason For Exam: PNEUMONIA. COVID 19 POSITIVE 12/03/19 08:49 Consult to Mental Health [CONS] Routine Reason For Exam: Active hallucinations, agitation Primary care physician: ON SITE NURSE Hospitalization Condition: Stable Pertinent studies: 11/30 CXR: Low lung lines with bronchovascular crowding. Lungs are clear. Costophrenic sulci are sharp. No pneumothorax. IMPRESSION: 1. Pulmonary hypoinflation with no acute findings. 11/30 CTH: There is no CT evidence of acute intracranial process. Hospital course: This a 34-year-old -[place] male with no medical history who was brought into the emergency room on 11/30 for changes in mental status. Patient was diagnosed with COVID-19 at [facility] on November 26, 2019. He was given albuterol inhaler, prednisone and Toradol for his treatment. According to patient's sister, patient was said to his sister that he is at home doing homework with the kids and that he was shot in the chest. However patient sister denies any kids in the room or that he was shot when he started acting confused and stating that he has been shot in the chest and also states that there were no kids in the room. Upon arrival in the emergency room patient was said to be tachycardic and acting confused. He became more alert and oriented during the course of his stay in his emergency room. Work-up in the emergency room reveals leukocytosis, chest x-ray is within normal limits. However records reviewed on patient's visit to [facility] on [facility] according to the ER physician showed bilateral opacities on the CT angiogram. Patient has been placed on isolation for COVID-19 and started on empiric antibiotics. Infectious disease has been consulted. On 12/02 a mental he alth evaluation was requested for acute psychosis however no inpatient hospitalization was not recommended at this time. He was initiated on Remdisivir (12/02-through 12/06). However due to improvement in altered mental status he will be discharged today and will finish his 10-day course of steroids till 12/10. (1) Acute metabolic encephalopathy Current Visit: Yes Status: Resolved Plan to address problem: - Possibly 2/2 to the underlying pneumonia /COVID infection. - Health consult was obtained and did not recommend inpatient hospitalization at this time - 11/30 CT head showed no acute finding (2) Acute psychosis Current Visit: Yes Status: Resolved Plan to address problem: - 12/01 aggressive toward staff, treated with antipsychotics - 12/02 MH evaluation obtained; does not recommend inpt psych at this time (2) COVID-19 virus infection Current Visit: Yes Status: Acute Plan to address problem: - Decadron started 12/03 to 12/11/2019 - Remdesivir start date 12/03- 12/05 - We will complete Decadron treatment outpatient (3) Leukocytosis Current Visit: Yes Status: resolved Plan to address problem: - Likely 2/2 to the underlying pneumonia/steroid use. - 12/02 WBC 11.1, Discharge WBC 10.4 on 12/05 Disposition: DC-01 TO HOME OR SELFCARE Time spent for discharge: 35 Core Measure Documentation - Palliative Care Palliative Care/ Comfort Measures: Not Applicable - Core Measures Any of the following diagnoses?: none Exam - Constitutional Vitals: Temp Pulse Resp BP Pulse Ox 98.8 F 88 20 151/100 100 12/06/19 04:37 12/06/19 04:37 12/06/19 04:37 12/06/19 04:37 12/06/19 04:37 General appearance: Present: no acute distress - EENT Eyes: Present: EOM intact ENT: hearing intact, clear oral mucosa - Neck Neck: Present: normal ROM - Respiratory Respiratory effort: normal Respiratory: bilateral: CTA - Cardiovascular Rhythm: regular Heart Sounds: Present: S1 & S2. Absent: systolic murmur, diastolic murmur - Extremities Extremities: no ischemia, pulses intact, pulses symmetrical, No edema, normal temperature, normal color, Full ROM Peripheral Pulses: within normal limits - Abdominal General gastrointestinal: Present: soft, non-tender, non-distended, normal bowel sounds - Integumentary Integumentary: Present: clear, warm, dry - Musculoskeletal Musculoskeletal: strength equal bilaterally - Psychiatric Psychiatric: appropriate mood/affect, cooperative - Neurologic Neurologic: CNII-XII intact, no focal deficits, moves all extremities - Allied Health Allied health notes reviewed: nursing, social work, case management Plan Activity: advance as tolerated Diet: regular Special Instructions: record daily BP diary Additional Instructions: Please contact your primary care physician report to the nearest emergency department if you experience worsening of your symptoms. Please follow-up with your primary care physician within 1 to 2 weeks of discharge. Please follow the pamphlets and education material that will be given to you by your nurse. Follow up with: PRIMARY CARE, [Primary Care Provider] - 3-5 Days Prescriptions: amLODIPine 5 mg PO QDAY #30 tablet dexAMETHasone [Decadron] 6 mg PO DAILY #5 tablet Apixaban [Eliquis] 5 mg PO QDAY #7 tablet
[2019-12-06 13:14] VITALS: BP 156/105
[2019-12-06] MEDS: amLODIPine 5 MG TAB PO SCH (13:15)
[2019-12-06 13:59] LABS: Hematocrit 45.4 % (35.5-45.6); Hemoglobin 14.8 gm/dl (11.8-15.2); Mean Corpuscular HGB Conc 33 % (32-34); Mean Corpuscular Volume 83 fl (84-94); Platelet Count 411 K/mm3 (140-440); Red Blood Count 5.48 M/mm3 (3.65-5.03); Red Cell Distribution Width 13.8 % (13.2-15.2)
== END 2019-12-06 15:30 | disposition home or self-care (01) | DRG 871 ==
LOC: ED 17:23 → 3A 23:45
PROVIDERS: ADMIT Internal Medicine Geriatric Medicine; ATTEND Hospitalist
PROC: XW033E5 Introduction of Remdesivir Anti-infective into Peripheral Vein, Percutaneous Approach, New Technology Group 5 (ICD-10-PCS; principal; 2019-12-03)
PROC: XW033E5 Introduction of Remdesivir Anti-infective into Peripheral Vein, Percutaneous Approach, New Technology Group 5 (ICD-10-PCS; 2019-12-04)
DX: A41.89 Other specified sepsis (principal); U07.1 COVID-19; G93.41 Metabolic encephalopathy; J12.89 Other viral pneumonia; F23 Brief psychotic disorder; D72.829 Elevated white blood cell count, unspecified
CPT/HCPCS: 36415; 70450; 71045; 80048; 80053; 80076; 80307; 80320; 81001; 82140; 82728; 82803; 82947; 83615; 83735; 84100; 84145; 85025; 85027; 85379; 85610; 85730; 86140; 87040; 96365; 96375; G0378; G0480; J0692; J1100; J1630; J1650; J2060; J7030; J8540; U0003-CS